=== PATIENT | male | born 1980 | race Caucasian/White ===

== ENCOUNTER 2020-09-11 21:16 | Emergency (ER) | payer OTHER, SELFPAY ==
--- NOTE | ~2020-09-11 | XR_ITS ---
EXAMINATION: XR chest 1V portable DATE: 09/11/2020 21:43 INDICATION: Midsternal chest pain. TECHNIQUE: A single frontal view of the chest was obtained. COMPARISON: None. FINDINGS: The chest demonstrates clear lungs without pneumonia, pleural effusion, or pneumothorax. Th e heart size is normal. There is an old healed fracture of right clavicle. IMPRESSION: 1. No acute cardiopulmonary disease. Reviewed, dictated and finalized at location A. MEL SELECTOR
--- NOTE | 2020-09-11 21:25 | ECG_ITS ---
Measurements Intervals [place] Rate: 67 P: 52 ME: 153 QRS: 57 QRSD: 108 T: 46 QT: 400 QTc: 422 Interpretive Statements SINUS RHYTHM DELAYED PRECORDIAL R/S TRANSITION BORDERLINE ECG Electronically Signed On 09-16-2020 8:47:42 FLASK PUSHER by Carlyle Huerta D.O.
[2020-09-11 21:27] VITALS: BP 148/102; PULSE 67; RESP 17; TEMP 36.8; O2SAT 100
--- NOTE | 2020-09-11 21:45 | ED.CHESTPAIN ---
HPI - Chest Pain General Chief Complaint: Chest Pain Stated Complaint: chest pain Time Seen by Provider: 09/11/20 21:30 Source: patient Mode of arrival: ambulatory Limitations: no limitations History of Present Illness HPI narrative: A 39-year-old male comes into the emergency department with complaints of chest pain. Patient states that he feels that there is right chest radiating around to his back. He denies any shortness of breath. Patient does state that if he moves certain ways this does seem to exacerbate his pain. He also notes exacerbation with certain movements of his arm. Patient points to and states that the pain seems to start at his pec muscle and wrap around and under. He denies taking any medications for this. Patient does state that it has been present and constant for the last couple of days. Related Data Allergies Allergy/AdvReac Type Severity Reaction Status Date / Time No Known Allergies Allergy Unknown Unverified 09/04/05 07:02 Review of Systems Review of Systems: Narrative: CONSTITUTIONAL: Denies fever, chills, or sweats. EYES: Denies visual changes, redness, or discharge. ENT: Denies rhinorrhea, congestion, sore throat, or otalgia. CARDIOVASCULAR: Denies palpitations, or edema. Endorses chest wall pain RESPIRATORY: Denies cough or dyspnea. GASTROINTESTINAL: Denies abdominal pain, nausea, vomiting, or diarrhea. GENITOURINARY: Denies dysuria or hematuria. SKIN: Denies rash or itching. MUSCULOSKELETAL: Denies back pain, joint pain, or myalgia. NEUROLOGIC: Denies headache, numbness, dizziness, or weakness. PSYCHIATRIC: Denies anxiety or depression. [facility] Social History Social History Smoking status: Former smoker Smoking end date: 07/19/16 Alcohol intake: current Substance use type: marijuana Exam Narrative: Exam Narrative: GENERAL: Well-appearing, well-nourished, and in no acute distress. HEAD: Normocephalic, atraumatic. EYES: PERRLA and EOMI. ENT: Nares clear, no rhinorrhea or epistaxis. Mucous membranes moist. Oropharynx without tonsillar hypertrophy exudate or other lesions. Bilateral TMs pearly winston nonbulging NECK: Supple. No adenopathy or masses. No carotid bruits or JVD CHEST: Clear to auscultation. No respiratory distress. No wheezes rales or rhonchi. Tenderness to palpation along the right chest wall, particularly at the insertion of the right pectoralis muscle. HEART: Regular rate and rhythm. No murmur heard. Normal peripheral pulses. ABDOMEN: Soft, nontender, nondistended, normal active bowel sounds. EXTREMITIES: Normal range of motion. No edema. SKIN: Warm, dry, no rash. NEURO: No focal deficits. Alert and oriented x3. PSYCH: Normal mood and affect. Course Reevaluation(s) Reevaluation #1: Patient reevaluated and provided care update. He states that he is feeling somewhat better. Patient notes that the medicines do seem to be helping. Time: 23:15 Vital Signs Vital signs: Vital Signs Temperature 36.8 C 09/11/20 21:27 Pulse Rate 67 09/11/20 21:27 Respiratory Rate 17 09/11/20 21:27 Blood Pressure 148/102 H 09/11/20 21:27 Pulse Oximetry 100 09/11/20 21:27 Temperature 36.8 C 09/11/20 21:27 Pulse Rate 66 09/11/20 22:43 Respiratory Rate 16 09/11/20 22:43 Blood Pressure 127/74 09/11/20 22:43 Pulse Oximetry 100 09/11/20 22:43 MDM - Chest Pain MDM Narrative Medical decision making narrative: In brief this 39-year-old male came into the emergency department with complaints of anterior chest wall pain. This was on the right-hand side. Acute coronary syndrome, pneumothorax, pneumonia, pulmonary embolus and other etiologies considered. With as long as the patient's pain has been going on, I felt 1 troponin was sufficient to rule out coronary disease. His troponin was found be negative. Patient did have clinical improvement with anti-inflammatories and steroids. He also had reproducible
[2020-09-11 21:47] LABS: Basophils Absolute Auto 0.1 K/mm3 (0.0-0.1); Eosinophils Absolute Auto 0.6 K/mm3 (0-0.3); Eosinophils Percent Auto 6.4 % (0-4.4); Hematocrit 44.3 % (42.0-52.0); Hemoglobin 15.4 g/dL (14.0-18.0); Immature Granulocyte Absolute 0.02 K/mm3 (0.00-0.031); Immature Granulocyte Percent A 0.2 % (0-0.5); Lymphocytes Absolute Auto 3.73 K/mm3 (0.9-3.2); Lymphocytes Percent Auto 43.3 % (18.3-44.2); Mean Corpuscular HGB Conc 34.8 g/dl (32-36); Mean Corpuscular Hemoglobin 29.1 pg (26-34); Mean Corpuscular Volume 83.6 fl (80-100); Mean Platelet Volume 9.4 fl (7.4-10.4); Monocytes Absolute Auto 0.5 K/mm3 (0.1-0.6); Monocytes Percent Auto 6.3 % (2.6-8.5); Neutrophils Absolute Auto 3.7 K/mm3 (1.3-6.7); Neutrophils Percent Auto 42.8 % (45.5-73.1); Platelet Count Result 234 k/mm3 (150-375); Red Cell Distribution Width 12.6 % (11.5-14.5); White Blood Count 8.6 K/mm3 (4.5-10.0)
[2020-09-11] MEDS: DEXAMETHASONE SOD PHOS INJ 4 MG/ML VIAL 10 MG IV PUSH (22:01)
[2020-09-11] MEDS: KETOROLAC 15 MG/ML VIAL (*BKC) IV PUSH (22:01)
[2020-09-11 22:02] LABS: Alanine Aminotransferase 34 U/L (4-50); Albumin Level 4.3 g/dL (3.5-5.1); Alkaline Phosphatase 72 U/L (38-126); Anion Gap 5 mmol/L (8-16); Aspartate Amino Transferase 33 U/L (17-59); Bilirubin,Total 0.3 mg/dL (0.2-1.3); Blood Urea Nitrogen 16 mg/dL (9-20); Calcium 9.1 mg/dL (8.4-10.2); Carbon Dioxide 30 mmol/L (22-30); Chloride 102 mmol/L (98-107); Estimated CRCL calculation 91 ml/min; Estimated Glomerular Filt Rate > 60; Glucose 112 mg/dL (75-110); Potassium 3.8 mmol/L (3.4-5.0); Sodium 137 mmol/L (137-145)
[2020-09-11 22:14] LABS: Troponin I < 0.012 ng/mL (0.000-0.034)
[2020-09-11 22:35] LABS: D Dimer < 0.22 ug/mL (<0.48)
[2020-09-11 22:43] VITALS: BP 127/74; PULSE 66; RESP 16; O2SAT 100
[2020-09-11 23:29] VITALS: BP 121/73; PULSE 68; RESP 16; TEMP 36.7; O2SAT 100
== END 2020-09-11 23:30 | disposition home or self-care (01) ==
PROVIDERS: Emergency Medicine; Emergency Provider Emergency Medicine; PCP Family Medicine
DX: M94.0 Chondrocostal junction syndrome [Tietze] (principal); Z87.891 Personal history of nicotine dependence
CPT/HCPCS: 36415; 71045; 80053; 84484; 85025; 85380; 93005; 96374; 96375; 99284; J1100; J1885

== ENCOUNTER 2020-12-30 06:54 | Outpatient (CLI) | payer OTHER, SELFPAY ==
--- NOTE | ~2020-12-30 | XR_ITS ---
EXAMINATION: XR shoulder LT min 2V DATE: 12/30/2020 07:20 INDICATION: Left shoulder pain TECHNIQUE: AP internally and externally rotated, AP oblique externally rotated and axillary views of the left shoulder were obtained. COMPARISON: Chest radiograph dated 09/11/2020 FINDINGS: Normal alignment. No fracture. Mild chondrocalcinosis along the humeral head. Glenohumeral joint is normal. Mild asymmetric widening of the left acromioclavicular joint space relative to the right on t he prior chest radiograph. There is some hypertrophic change and heterotopic ossification at the dist al tip of the left clavicle. Findings suggest sequela of prior acromioclavicular joint separation. So ft tissues are unremarkable. Visualized portions of the left lung are clear. IMPRESSION: 1. 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 No acute osseous abnorma lities. 2. Chondrocalcinosis at the left humeral head with normal glenohumeral joint space Reviewed, dictated and finalized at location A. IMPRESSION: 1. 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 No acute osseous abnormalities. 2. Chondrocalcinosis at the left humeral head with normal glenohumeral joint sp kera
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
== END 2020-12-30 06:55 ==
PROVIDERS: PCP Family Medicine; Visit Provider Physician Assistant Medical
DX: M25.512 Pain in left shoulder (principal); M46.1 Sacroiliitis, not elsewhere classified; M54.5 Low back pain; S22.081A Stable burst fracture of T11-T12 vertebra, initial encounter for closed fracture; M47.816 Spondylosis without myelopathy or radiculopathy, lumbar region; M11.212 Other chondrocalcinosis, left shoulder
CPT/HCPCS: 72100; 73030

== ENCOUNTER 2023-03-05 15:26 | Outpatient (CLI) | payer OTHER, SELFPAY | END 2023-03-05 15:27 | disposition home or self-care (01) | LOC: ANHGOSHLAB 15:27 | PROVIDERS: PCP Family Medicine; Visit Provider Family Medicine | DX: E03.9 Hypothyroidism, unspecified (principal) | CPT/HCPCS: 36415; 84443 ==

== ENCOUNTER 2024-09-20 15:19 | Outpatient (CLI) | payer OTHER, SELFPAY ==
--- NOTE | ~2024-09-20 | CT_ITS ---
EXAMINATION: CT sinus wo con DATE: 09/20/2024 15:29 INDICATION: Chronic pansinusitis. TECHNIQUE: Computed tomography (CT) of the paranasal sinuses was performed without intravenous contra st. Iterative reconstruction technique was employed. The dose-length product was 264.97 mGy-cm. COMPARISON: None FINDINGS: There is mild mucosal thickening in right frontal recess and severe mucosal thickening in l eft frontal recess. There are old blowout fractures of the medial rodgers of the orbits bilaterally. Th ere is moderate mucosal thickening in the ethmoid sinuses. There is mild mucosal thickening in the sp henoid sinuses. There is mild mucosal thickening in right maxillary sinus and moderate mucosal thicke jolly in left maxillary sinus. There is rightward deviation of the nasal septum. There is lamonte bullo sa involving the middle turbinates. There are Darryl cells bilaterally. The ostiomeatal units are occ luded bilaterally. IMPRESSION: 1. Mucosal thickening in the paranasal sinuses with occluded ostiomeatal units. 2. Rightward deviation of the nasal septum. Reviewed, dictated and finalized at location A. CH LIBRARY CLERK
== END 2024-09-20 15:20 | disposition home or self-care (01) ==
LOC: MICIMG 15:19
PROVIDERS: PCP Family Medicine; Visit Provider Otolaryngology
DX: J32.4 Chronic pansinusitis (principal); J34.2 Deviated nasal septum; J34.89 Other specified disorders of nose and nasal sinuses
CPT/HCPCS: 70486

== ENCOUNTER 2024-11-23 11:39 | Emergency (ER) | payer OTHER, SELFPAY ==
--- NOTE | ~2024-11-23 | XR_ITS ---
EXAMINATION: XR elbow LT min 3V DATE: 11/23/2024 12:21 INDICATION: Left elbow injury post fall TECHNIQUE: Anteroposterior, two oblique and lateral views of the left elbow were obtained. COMPARISON: None. FINDINGS: There is an impacted intra-articular fracture involving approximately 25% of the surface area of the left radial head and with 2-3 mm step-off along the articular surface. No other fractures identified. Alignment and joint spaces are otherwise normal. Very small olecranon spur. Small elbow joint effusi on. IMPRESSION: 1. To 3 mm depression of an intra-articular fracture of the left radial head. Reviewed, dictated and finalized at location A.
--- NOTE | 2024-11-23 11:52 | ED.UPPEXIN ---
HPI - Extremity Injury (Upper) General Chief Complaint: Extremity Injury, Upper Stated Complaint: Fall Injury/Left Elbow Time Seen by Provider: 11/23/24 12:07 Source: patient, RN notes reviewed and old records reviewed Mode of arrival: ambulatory Limitations: no limitations History of Present Illness HPI narrative: 44-year-old male presents to [facility] with complaints of injury to his left elbow after falling at 6:00 a.m. on to the concrete. Patient reports that he stepped down step in garage and is unsure if slipped or fell over his feet. Patient reports no other injury, denies hitting his head. Patient has swelling and pain to the left elbow, Patient is unable to pronate or supinate his left forearm, strong pulses to his left arm. MD complaint: injury to: left and elbow Onset (ago): hour(s) (0600 this morning) Other injuries: none Place: home Severity scale (1-10): 10 Treatments prior to arrival: other (ice applied on arrival to clinic) Related Data Allergies Allergy/AdvReac Type Severity Reaction Status Date / Time No Known Allergies Allergy Unknown Verified 11/23/24 12:40 Review of Systems Review of Systems: CONSTITUTIONAL: Denies fever, chills, or sweats. EYES: Denies visual changes, redness, or discharge. ENT: Denies rhinorrhea, congestion, sore throat, or otalgia. CARDIOVASCULAR: Denies chest pain, palpitations, or edema. RESPIRATORY: Denies cough or dyspnea. GASTROINTESTINAL: Denies abdominal pain, nausea, vomiting, or diarrhea. GENITOURINARY: Denies dysuria or hematuria. SKIN: Denies rash or itching. MUSCULOSKELETAL: Denies back pain, Positive for left elbow joint pain and swelling from injury, or myalgia. NEUROLOGIC: Denies headache, numbness, or weakness. PSYCHIATRIC: Denies anxiety or depression. All systems reviewed & are unremarkable except as noted in HPI and below PMFSH Past Medical History Medical History Allergic rhinitis Asthma as child Chronic congestion of paranasal sinus Hypothyroidism (acquired) Surgical History Surgical History Status post left foot surgery Hx of bilateral inguinal hernia repair Social History Social History (Updated 11/25/24 @ 16:50 by Sherri Dugan NP) Smoking status: Former smoker Smoking end date: 07/19/16 Alcohol intake: current Substance use type: marijuana Living arrangements: with family Gender identity (if verbalized by the patient): Male Comments At time of signature, agree with nursing past medical, surgical, social and family history. There is no relevant family history pertinent to the presenting complaint Exam Narrative: GENERAL: Well-appearing, well-nourished, and in some acute distress.related to left elbow injury HEAD: Normocephalic, atraumatic. EYES: PERRLA and EOMI. ENT: Nares clear, no rhinorrhea or epistaxis. Mucous membranes moist. NECK: Supple.no lymphadenopathy CHEST: Clear to auscultation. No respiratory distress.SAO2 100% on room air HEART: Regular rate and rhythm. No murmur heard. Normal peripheral pulses. ABDOMEN: Soft, nontender, nondistended, normal active bowel sounds. EXTREMITIES: Normal range of motion. No edema. Exception noted to pain and swelling of his left elbow with decreased mobility, sensation is intact with strong pulses to his left arm and wrist, nail beds elsie briskly SKIN: Warm, dry, no rash. NEURO: No focal deficits. Alert and oriented x3. Course Course Emergency Course: Patient is aware of diagnosis, understands and agrees to treatment plan.? Anticipatory guidance given.? Patient agrees to follow-up as directed and is aware of reasons to seek care at the emergency department. Portions of this record may have been created with voice recognition software Level of Care: Express Care Visit Vital Signs Vital signs: Vital Signs Temperature 36.9 C 11/23/24 11:57 Pulse Rate 58 L 11/23/24 11:57 Respiratory Rate 20 11/23/24 11:57 Blood Pressure 170/87 H 11/23/24 11:57 Pulse Oximetry 100 11/23/24 11:57 Oxygen Delivery Room Air 11/23/24 11:57 Temperature 36.7 C 11/23/24 13:29 Pulse Rate 60 11/23/24 13:29 Respiratory Rate 20 11/23/24 13:29 Blood Pressure 154/95 H 11/23/24 13:29 Pulse Oximetry 100 11/23/24 13:29 Oxygen Delivery Room Air 11/23/24 13:29 Reviewed Procedures Orthopedic Splinting/Casting elbow: Splinting/Casting Date: 11/23/24 Splinting/Casting Time: 13:11 Side: left Upper Extremity Injury Location: elbow Upper Extremity Immobilizer: posterior splint Splint: customized in ED OCL: long arm Pre-Procedure Neuro Vascular Exam: normal Post-Procedure Neuro Vascular Exam: normal Other Orthopedic Equipment: other (sling) Additional Comments: Patient tolerated splinting of left arm with acute discomfort, circulation intact. MDM - Extremity Injury (Upper) [facility] Narrative Medical decision making narrative: 1255 Call placed to [facility] and was told to have patient bring x-ray copy and x-ray report and the doctor will review to see if any further studies needed and will then set up appointment to see patient, spoke with [facility] office staff. Differential Diagnosis Differential diagnosis: Likely other (Elbow fracture, left elbow radial fracture, pain to left elbow) Medical Records Attestation: I reviewed the patient's medical records. Imaging Data Attestation: I personally reviewed and interpreted this imaging study as follows: My impression: 3mm depression of an intra--articular fracture of left radial head. Small left elbow joint effusion Radiologist's impression: [address] [place] [employer] [place] [id number] XRay Report Signed Patient: Darren Parikh : 1980 MR#: [id number] Age: 44 Acct:[id number] Loc: [facility] ADM Date: 11/23/24Attending Dr: Ordering Physician: Sherri Dugan APRN Date of Service: 11/23/24 Procedure(s): XR elbow LT min 3V Accession Number(s): [id number] cc: Casey Priest MD; Sherri Dugan APRN~ EXAMINATION: XR elbow LT min 3V DATE: 11/23/2024 12:21 INDICATION: Left elbow injury post fall TECHNIQUE: Anteroposterior, two oblique and lateral views of the left elbow were obtained. COMPARISON: None. FINDINGS: There is an impacted intra-articular fracture involving approximately 25% of the surface area of the left radial head and with 2-3 mm step-off along the articular surface. No other fractures identified. Alignment and joint spaces are otherwise normal. Very small olecranon spur. Small elbow joint effusion. IMPRESSION: 1. To 3 mm depression of an intra-articular fracture of the left radial head. Reviewed, dictated and finalized at location A. Please be advised this is a medical document. It is intended for [id number] communication. It is written in medical language and may contain unfamiliar abbreviations or verbiage. Medical documents are intended to carry relevant information, facts as evident, and the clinical opinion of the practitioner at the time of the encounter. This report may have been done utilizing a voice recognition system. Attempts have been made to correct errors. However, there may be uncorrected grammatical, spelling, and recognition errors present. The file time of this note does not necessarily represent the time of service. Dictated By: Renard Schrader MD 11/23/24 1221 Signed By: <Electronically signed by Renard Schrader MD in OV> Critical Care Time Critical Care Time Critical Care Time: No Discharge Plan Discharge Clinical Impression: Fracture of radial head, left, closed Qualifiers: Encounter type: initial encounter Fracture alignment: displaced Qualified Code(s): S52.122A - Displaced fracture of head of left radius, initial encounter for closed fracture Patient Disposition: Home Condition: Stable Instructions: Antibiotic Form, Elbow Fracture (ED) Additional Instructions: orthopedic splint as directed until seen by Ortho sling to the left arm Tylenol for lesser pain Ibuprofen regularly for the next 2-3 days for the inflammation Use the medication as provided for severe pain--caution each tablet contains 325 mg of Tylenol--the maximum dose of Tylenol is 4000 mg in 24 hours. This medication may cause constipation consider starting a laxative at this time Follow-up with orthopedic surgeon to go to [facility] and bring films and x-ray report to office today they will review and then set the patient for appointment Follow-up with PCP if further problems or concerns Ice to the area 20-30 minutes 4-6 times a day Elevate above heart If your symptoms persist, change or worsen significantly before you can contact your personal physician then please, without delay, go to the emergency department for further evaluation. Follow-up with PCP in 7-10 days or sooner if needed Follow up with PCP soon in regards to your blood pressure which is elevated above threshold for referral. Blood pressure above 120/80 may indicate pre-hypertension. 170/87 blood pressure recheck 154/95 prior to discharge Patient Language: Slovak Prescriptions: New hydrocodone-acetaminophen 7.5-325 mg tablet 1 tablet PO Q6H PRN (Reason: pain) Qty: 15 0RF naloxone [Narcan] 4 mg/actuation spray,non-aerosol 4 mg intranasal Q2M PRN (Reason: opioid overdose) Qty: 2 0RF Rx Instructions: spray 1 dose into ONE nostril; alternate nostrils w each dose until help arrives No Action fluticasone propionate [Flonase Allergy Relief] 50 mcg/actuation spray,suspension 2 spray intranasal BID Qty: 16 3RF Rx Instructions: administer into each nostril. Aim back/up/out azelastine 137 mcg (0.1 %) spray,non-aerosol 1 - 2 spray intranasal Q12H Qty: 30 1RF Rx Instructions: administer into each nostril. Aim back/up/out levothyroxine 175 mcg tablet 175 mcg PO DAILY Qty: 30 5RF albuterol sulfate 90 mcg/actuation HFA aerosol inhaler See Rx Instructions .ROUTE .COMPLEX Qty: 42.5 1RF Dose Instruction: INHALE 2 PUFFS BY MOUTH EVERY 4 TO 6 HOURS NEEDED FOR SHORTNESS OF BREATH OR WHEEZING Rx Instructions: INHALE 2 PUFFS BY MOUTH EVERY 4 TO 6 HOURS NEEDED FOR SHORTNESS OF BREATH OR WHEEZING Follow-up/Referrals: Casey Priest MD [Primary Care Provider] - Time of Disposition: 13:29 Quality [place] Coma Scale Eyes: Open Verbal: Oriented and Alert Motor: Follows Commands [place] Coma Total Score: 15
[2024-11-23 11:57] VITALS: BP 170/87; PULSE 58; RESP 20; TEMP 36.9; O2SAT 100
[2024-11-23 13:29] VITALS: BP 154/95; PULSE 60; RESP 20; TEMP 36.7; O2SAT 100
== END 2024-11-23 13:31 | disposition home or self-care (01) ==
PROVIDERS: Emergency Provider Registered Nurse; PCP Family Medicine
DX: S52.122A Displaced fracture of head of left radius, initial encounter for closed fracture (principal); W19.XXXA Unspecified fall, initial encounter; E03.9 Hypothyroidism, unspecified; F12.90 Cannabis use, unspecified, uncomplicated; Z87.891 Personal history of nicotine dependence
CPT/HCPCS: 29105; 73080; 99214; A4565; G0463